=== PATIENT | male | born 1980 | race Native Hawaiian/Other Pacific Islander ===

== ENCOUNTER 2020-08-10 13:01 | Inpatient (IN) | payer OTHER ==
--- NOTE | 2020-08-10 13:45 | BHS.RME ---
2019 N Coronavirus Screen - COVID-19 Screening Questions Dx of COVID-19 or had a positive test in the last 4 weeks?: No Contact with known/suspected COVID patient in last 14 days?: No Any of these symptoms or contact with someone who has?: None Traveled domestically/internationally in the last 14 days?: No Screen score: 0 Screen result: Further Evaluation Substance Use & Tx History - Substance Use History Alcohol Substance amount: 2 pints vodka Frequency of use: Daily Substance route: Oral Date of Last Use: 08/10/20 (started age 17) Marijuana/Hashish Substance amount: 2 joints Frequency of use: Daily Substance route: Smoking Date of Last Use: 08/09/20 (started age 17) Cocaine- Powder Substance amount: 1snap Frequency of use: Once a month Substance route: Inhalation (ex: sniffing or snorting) Date of Last Use: 08/09/20 (started age 24) Nicotine Substance amount: 1/2 pack Frequency of use: Daily Substance route: Smoking Date of Last Use: 08/10/20 (started age 17) Physical/Psych/Mental Status - Behavior General Behavior: Increased activity (restlessness, agitation) Eye Contact: Normal - Cooperativeness Cooperativeness: Cooperative - Thinking Thought Processes: Tight, Logical, Goal Directed - Physical Health Problems Is patient presently having any pain?: No Does patient presently have any injuries (include location): No Does patient currently have a fever: No Is patient : No CIWA Nausea/Vomitin Muscle Tremors: 4-Moderate,w/Arms Extend Anxiety: 2 Agitation: 3 Paroxysmal Sweats: 1-Minimal Palms Moist Orientation: 0-Oriented Tacttile Disturbances: 1-Very Mild Itch/Numbness Auditory Disturbances: 0-None Visual Disturbances: 0-None Headache: 3-Moderate CIWA-Ar Total Score: 17
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
[2020-08-10] MEDS ORDERED: MAGNESIUM CITRATE 300 ML BOTTLE PO PRN (15:33)
[2020-08-10] MEDS ORDERED: IBUPROFEN 400 MG TABLET (FP) PO PRN (15:33)
[2020-08-10] MEDS ORDERED: ONDANSETRON *ODT* 4 MG TABLET SL PRN (15:33)
[2020-08-10] MEDS ORDERED: MAGNESIUM HYDROX 2400MG/30ML ORAL SUSPENSION 30 ML CUP PO PRN (15:33)
[2020-08-10] MEDS ORDERED: MENTHOL/PHENOL 1 EACH UD MM PRN (15:33)
[2020-08-10] MEDS ORDERED: NICOTINE POLACRILEX 2 MG GUM BUC PRN (15:33)
[2020-08-10] MEDS ORDERED: chlordiazePOXIDE HCL 25 MG CAPSULE PO PRN (15:33)
[2020-08-10] MEDS ORDERED: ACETAMINOPHEN 325 MG TABLET (FP) PO PRN ×2 (15:33)
[2020-08-10] MEDS ORDERED: BISMUTH SUBSALICYLATE 524 MG/30 ML UD PO PRN (15:33)
[2020-08-10 15:52] VITALS: BMI 25.0
[2020-08-10] MEDS: chlordiazePOXIDE HCL 25 MG CAPSULE PO SCH ×2 (18:35→23:12)
[2020-08-10] MEDS: NICOTINE 14 MG/24 HOURS TOPICAL PATCH TD SCH (18:36)
[2020-08-10] MEDS: hydrOXYzine PAMOATE 25 MG CAPSULE (FP) PO SCH ×2 (18:36→22:23)
[2020-08-10] MEDS: MELATONIN 5 MG TABLETS PO SCH (22:23)
[2020-08-10] MEDS: THIAMINE HCL 100 MG TABLET (FP) PO SCH (22:24)
[2020-08-11] MEDS: chlordiazePOXIDE HCL 25 MG CAPSULE PO SCH ×4 (06:41→22:34)
[2020-08-11] MEDS: hydrOXYzine PAMOATE 25 MG CAPSULE (FP) PO SCH (06:41)
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
[2020-08-11] MEDS ORDERED: chlordiazePOXIDE HCL 25 MG CAPSULE PO SCH (09:49)
[2020-08-11 10:03] LABS: ALBUMIN 3.2 g/dl (3.4-5.0); CALCIUM 9.1 mg/dL (8.5-10.1); POTASSIUM 4.3 mmol/L (3.5-5.1); TOT PROT 6.4 g/dl (6.4-8.2)
[2020-08-11 10:05] LABS: HEMATOCRIT 45.1 % (35.4-49); MCH 32.3 pg (25.7-33.7); MCHC 33.3 g/dl (32.0-35.9); MEAN CELL VOLUME 96.9 fl (80-96); MEAN PLT VOLUME 8.1 fl (7.5-11.1); PLATELET COUNT 293 K/MM3 (134-434); RBC 4.65 M/mm3 (4.00-5.60); RDW 13.5 % (11.9-15.9); WHITE BLOOD COUNT 4.9 K/mm3 (4.0-10.0)
[2020-08-11] MEDS: NICOTINE 14 MG/24 HOURS TOPICAL PATCH TD SCH (10:50)
[2020-08-11] MEDS: PRENATAL VITAMINS W/ FOLIC ACID TABLET (FP) PO SCH (10:50)
--- NOTE | 2020-08-11 12:41 | PN ---
S CIWA - CIWA Score Nausea/Vomitin-No Nausea/No Vomiting Muscle Tremors: 3 Anxiety: 2 Agitation: 2 Paroxysmal Sweats: 2 Orientation: 0-Oriented Tacttile Disturbances: 0-None Auditory Disturbances: 0-None Visual Disturbances: 0-None Headache: 0-None Present CIWA-Ar Total Score: 9 BHS Progress Note (SOAP) Subjective: sweats agitation body aches interrupted sleep I want a lesser librium because my withdrawals are not too bad. Objective: 08/11/20 12:40 Vital Signs Temperature 98.1 F 08/11/20 09:37 Pulse Rate 74 08/11/20 09:37 Respiratory Rate 18 08/11/20 09:37 Blood Pressure 115/69 08/11/20 09:37 O2 Sat by Pulse Oximetry (%) 96 08/11/20 05:34 Laboratory Tests 08/11/20 08/11/20 08/11/20 07:50 07:50 07:50 WBC 4.9 RBC 4.65 Hgb 15.0 Hct 45.1 MCV 96.9 H MCH 32.3 MCHC 33.3 RDW 13.5 Plt Count 293 MPV 8.1 Sodium 139 Potassium 4.3 Chloride 103 Carbon Dioxide 34 H Anion Gap 3 L BUN 15.0 Creatinine 1.0 Est GFR (CKD-EPI)AfAm 107.12 Est GFR (CKD-EPI)NonAf 92.42 Random Glucose 92 Calcium 9.1 Total Bilirubin 1.0 AST 18 ALT 24 Alkaline Phosphatase 60 Total Protein 6.4 Albumin 3.2 L Syphilis Serology Non-reactive labs noted aaox3 ambulating no acute distress Assessment: 08/11/20 12:41 withdrawals Plan: librium modified as pt request increase fluids
--- NOTE | 2020-08-11 13:43 | EKG ---
Test Reason : Blood Pressure : / mmHG Vent. Rate : 066 BPM Atrial Rate : 066 BPM P-R Int : 156 ms QRS Dur : 092 ms QT Int : 410 ms P-R-T Axes : 061 064 045 degrees QTc Int : 429 ms NORMAL SINUS RHYTHM EARLY REPOLARIZATION NO PREVIOUS ECGS AVAILABLE Confirmed by ALYSSA PARADA MD ([id number]) on 08/11/2020 1:42:41 PM Referred By: Confirmed By:ALYSSA PARADA MD
[2020-08-11] MEDS: THIAMINE HCL 100 MG TABLET (FP) PO SCH (22:34)
[2020-08-11] MEDS: MELATONIN 5 MG TABLETS PO SCH (22:34)
[2020-08-12] MEDS ORDERED: chlordiazePOXIDE HCL 25 MG CAPSULE PO SCH (05:00)
[2020-08-12] MEDS: chlordiazePOXIDE 5 MG CAPSULE PO SCH ×3 (06:01→17:52)
[2020-08-12] MEDS: NICOTINE 14 MG/24 HOURS TOPICAL PATCH TD SCH (11:04)
[2020-08-12] MEDS: PRENATAL VITAMINS W/ FOLIC ACID TABLET (FP) PO SCH (11:04)
[2020-08-12] MEDS: MAG HYDROX/AL HYDROX/SIMETH 30 ML UNIT-DOSE CUP PO PRN (14:49)
--- NOTE | 2020-08-12 18:48 | PN ---
S CIWA - CIWA Score Nausea/Vomitin-No Nausea/No Vomiting Muscle Tremors: None Anxiety: 4-Mod. Anxious/Guarded Agitation: 3 Paroxysmal Sweats: 2 Orientation: 0-Oriented Tacttile Disturbances: 0-None Auditory Disturbances: 0-None Visual Disturbances: 0-None Headache: 0-None Present CIWA-Ar Total Score: 9 BHS Progress Note (SOAP) Subjective: Sweating, Anxious, Interrupted Sleep. Objective: Patient A & O X 3, Observed Ambulating on Detox Unit Unassisted. In No Acute Distress. 08/12/20 18:48 Vital Signs Temperature 97.7 F 08/12/20 16:30 Pulse Rate 78 08/12/20 16:30 Respiratory Rate 18 08/12/20 16:30 Blood Pressure 126/77 08/12/20 16:30 O2 Sat by Pulse Oximetry (%) 99 08/12/20 16:30 Laboratory Tests 08/10/20 08/11/20 08/11/20 17:20 07:50 07:50 WBC 4.9 RBC 4.65 Hgb 15.0 Hct 45.1 MCV 96.9 H MCH 32.3 MCHC 33.3 RDW 13.5 Plt Count 293 MPV 8.1 Sodium Potassium Chloride Carbon Dioxide Anion Gap BUN Creatinine Est GFR (CKD-EPI)AfAm Est GFR (CKD-EPI)NonAf Random Glucose Calcium Total Bilirubin AST ALT Alkaline Phosphatase Total Protein Albumin Syphilis Serology Non-reactive COVID-19 (BARB) Not detected 08/11/20 07:50 WBC RBC Hgb Hct MCV MCH MCHC RDW Plt Count MPV Sodium 139 Potassium 4.3 Chloride 103 Carbon Dioxide 34 H Anion Gap 3 L BUN 15.0 Creatinine 1.0 Est GFR (CKD-EPI)AfAm 107.12 Est GFR (CKD-EPI)NonAf 92.42 Random Glucose 92 Calcium 9.1 Total Bilirubin 1.0 AST 18 ALT 24 Alkaline Phosphatase 60 Total Protein 6.4 Albumin 3.2 L Syphilis Serology COVID-19 (BARB) Lab Results noted. Assessment: 08/12/20 18:49 WITHDRAWAL SYMPTOMS. Plan: Continue Detox.
[2020-08-12] MEDS: THIAMINE HCL 100 MG TABLET (FP) PO SCH (21:50)
[2020-08-12] MEDS: METHOCARBAMOL 500 MG TABLET PO PRN (21:50)
[2020-08-12] MEDS: hydrOXYzine PAMOATE 25 MG CAPSULE (FP) PO PRN (21:50)
[2020-08-12] MEDS: MELATONIN 5 MG TABLETS PO SCH (23:04)
[2020-08-13] MEDS ORDERED: chlordiazePOXIDE HCL 10 MG CAPSULE PO PRN
[2020-08-13] MEDS: chlordiazePOXIDE HCL 10 MG CAPSULE PO SCH ×3 (06:18→17:32)
[2020-08-13] MEDS: PRENATAL VITAMINS W/ FOLIC ACID TABLET (FP) PO SCH (10:06)
[2020-08-13] MEDS: NICOTINE 14 MG/24 HOURS TOPICAL PATCH TD SCH (10:06)
--- NOTE | 2020-08-13 12:35 | PN ---
[facility] CIWA - CIWA Score Nausea/Vomitin-No Nausea/No Vomiting Muscle Tremors: None Anxiety: 1-Mildly Anxious Agitation: 0-Normal Activity Paroxysmal Sweats: 1-Minimal Palms Moist Orientation: 0-Oriented Tacttile Disturbances: 0-None Auditory Disturbances: 0-None Visual Disturbances: 0-None Headache: 0-None Present CIWA-Ar Total Score: 2 BHS Progress Note (SOAP) Subjective: Complaints of mild anxiety and sweats. Objective: 08/13/20 12:33 Alert and oriented x3, in no acute respiratory distress. Full ROM, ambulating in unit without any assistance. Skin warm to touch without lesions. Vital Signs 08/13/20 08/13/20 06:22 09:10 Temperature 97.1 F L 97.3 F L Pulse Rate 62 83 Respiratory 20 16 Rate Blood Pressure 112/63 124/77 O2 Sat by Pulse 98 98 Oximetry (%) Laboratory Last Values WBC 4.9 K/mm3 (4.0-10.0) 08/11/20 07:50 RBC 4.65 M/mm3 (4.00-5.60) 08/11/20 07:50 Hgb 15.0 GM/dL (11.7-16.9) 08/11/20 07:50 Hct 45.1 % (35.4-49) 08/11/20 07:50 MCV 96.9 fl (80-96) H 08/11/20 07:50 MCH 32.3 pg (25.7-33.7) 08/11/20 07:50 MCHC 33.3 g/dl (32.0-35.9) 08/11/20 07:50 RDW 13.5 % (11.9-15.9) 08/11/20 07:50 Plt Count 293 K/MM3 (134-434) 08/11/20 07:50 MPV 8.1 fl (7.5-11.1) 08/11/20 07:50 Sodium 139 mmol/L (136-145) 08/11/20 07:50 Potassium 4.3 mmol/L (3.5-5.1) 08/11/20 07:50 Chloride 103 mmol/L (98-107) 08/11/20 07:50 Carbon Dioxide 34 mmol/L (21-32) H 08/11/20 07:50 Anion Gap 3 MMOL/L (8-16) L 08/11/20 07:50 BUN 15.0 mg/dL (7-18) 08/11/20 07:50 Creatinine 1.0 mg/dL (0.55-1.3) 08/11/20 07:50 Est GFR (CKD-EPI)AfAm 107.12 08/11/20 07:50 Est GFR (CKD-EPI)NonAf 92.42 08/11/20 07:50 Random Glucose 92 mg/dL (74-106) 08/11/20 07:50 Calcium 9.1 mg/dL (8.5-10.1) 08/11/20 07:50 Total Bilirubin 1.0 mg/dL (0.2-1) 08/11/20 07:50 AST 18 U/L (15-37) 08/11/20 07:50 ALT 24 U/L (13-61) 08/11/20 07:50 Alkaline Phosphatase 60 U/L (45-117) 08/11/20 07:50 Total Protein 6.4 g/dl (6.4-8.2) 08/11/20 07:50 Albumin 3.2 g/dl (3.4-5.0) L 08/11/20 07:50 Syphilis Serology Non-reactive (NONREACTIVE) 08/11/20 07:50 COVID-19 (BARB) Not detected (Not Detected) 08/10/20 17:20 Labs noted. Assessment: 08/13/20 12:33 Minimal withdrawal symptoms. Plan: Continue detox protocol. D/C in AM.
[2020-08-13] MEDS: hydrOXYzine PAMOATE 25 MG CAPSULE (FP) PO PRN (22:07)
[2020-08-13] MEDS: THIAMINE HCL 100 MG TABLET (FP) PO SCH (22:07)
[2020-08-13] MEDS: METHOCARBAMOL 500 MG TABLET PO PRN (22:09)
[2020-08-13] MEDS: MAG HYDROX/AL HYDROX/SIMETH 30 ML UNIT-DOSE CUP PO PRN (22:09)
[2020-08-13] MEDS: MELATONIN 5 MG TABLETS PO SCH (23:09)
[2020-08-14] MEDS ORDERED: chlordiazePOXIDE HCL 10 MG CAPSULE PO SCH (05:00)
[2020-08-14] MEDS ORDERED: chlordiazePOXIDE HCL 10 MG CAPSULE PO ONE (05:00)
[2020-08-14 09:49] VITALS: BP 110/63; PULSE 88; TEMP 98.1
[2020-08-14] MEDS: NICOTINE 14 MG/24 HOURS TOPICAL PATCH TD SCH (11:05)
[2020-08-14] MEDS: PRENATAL VITAMINS W/ FOLIC ACID TABLET (FP) PO SCH (11:06)
--- NOTE | 2020-08-14 11:59 | DS ---
[facility] Detox Discharge Summary Admission Date: 08/10/20 Discharge Date: 08/14/20 - History Present History: Alcohol Dependence, Cannabis Dependence, Cocaine Dependence - Physical Exam Results Vital Signs: Vital Signs Temperature 98.1 F 08/14/20 08:20 Pulse Rate 88 08/14/20 08:20 Respiratory Rate 16 08/14/20 08:20 Blood Pressure 110/63 08/14/20 08:20 O2 Sat by Pulse Oximetry (%) 96 08/14/20 08:20 Pertinent Admission Physical Exam Findings: Vital Signs Temperature 98.1 F 08/14/20 08:20 Pulse Rate 88 08/14/20 08:20 Respiratory Rate 16 08/14/20 08:20 Blood Pressure 110/63 08/14/20 08:20 O2 Sat by Pulse Oximetry (%) 96 08/14/20 08:20 Laboratory Tests 08/10/20 08/11/20 08/11/20 17:20 07:50 07:50 WBC 4.9 RBC 4.65 Hgb 15.0 Hct 45.1 MCV 96.9 H MCH 32.3 MCHC 33.3 RDW 13.5 Plt Count 293 MPV 8.1 Sodium Potassium Chloride Carbon Dioxide Anion Gap BUN Creatinine Est GFR (CKD-EPI)AfAm Est GFR (CKD-EPI)NonAf Random Glucose Calcium Total Bilirubin AST ALT Alkaline Phosphatase Total Protein Albumin Syphilis Serology Non-reactive COVID-19 (BARB) Not detected 08/11/20 07:50 WBC RBC Hgb Hct MCV MCH MCHC RDW Plt Count MPV Sodium 139 Potassium 4.3 Chloride 103 Carbon Dioxide 34 H Anion Gap 3 L BUN 15.0 Creatinine 1.0 Est GFR (CKD-EPI)AfAm 107.12 Est GFR (CKD-EPI)NonAf 92.42 Random Glucose 92 Calcium 9.1 Total Bilirubin 1.0 AST 18 ALT 24 Alkaline Phosphatase 60 Total Protein 6.4 Albumin 3.2 L Syphilis Serology COVID-19 (BARB) aaox3 ambulating no acute distress lugs CTA - Treatment Hospital Course: Detox Protocol Followed, Detoxed Safely, Responded well, Discharged Condition Good, Rehab Referral Accepted - Medication Discharge Medications: Ambulatory Orders NK [No Known Home Medication] 08/10/20 - Diagnosis (1) Alcohol abuse with withdrawal, uncomplicated Current Visit: Yes Status: Chronic (2) Cannabis dependence Current Visit: Yes Status: Chronic (3) Cocaine dependence Current Visit: Yes Status: Chronic Qualifiers: Substance use status: uncomplicated Qualified Code(s): F14.20 - Cocaine dependence, uncomplicated (4) Nicotine dependence Current Visit: Yes Status: Chronic Qualifiers: Nicotine product type: cigarettes Substance use status: uncomplicated Qualified Code(s): F17.210 - Nicotine dependence, cigarettes, uncomplicated - AMA Did Patient Leave Against Medical Advice: No
--- NOTE | 2020-08-14 16:16 | EKG ---
Test Reason : Blood Pressure : / mmHG Vent. Rate : 060 BPM Atrial Rate : 060 BPM P-R Int : 146 ms QRS Dur : 092 ms QT Int : 410 ms P-R-T Axes : 044 064 044 degrees QTc Int : 410 ms NORMAL SINUS RHYTHM NORMAL ECG WHEN COMPARED WITH ECG OF 10-AUG-2020 16:28, NO SIGNIFICANT CHANGE WAS FOUND Confirmed by YEIMY DESAI MD ([id number]) on 08/14/2020 4:15:48 PM Referred By: Confirmed By:YEIMY DESAI MD
[2020-08-15] MEDS ORDERED: chlordiazePOXIDE HCL 10 MG CAPSULE PO ONE (05:00)
== END 2020-08-14 13:12 | disposition other institution (70) | DRG 774 ==
LOC: YASAS 13:01 → Y6N 17:23
PROVIDERS: ADMIT Allergy & Immunology; ATTEND Allergy & Immunology
PROC: HZ2ZZZZ Detoxification Services for Substance Abuse Treatment (ICD-10-PCS; principal; 2020-08-10)
DX: F10.230 Alcohol dependence with withdrawal, uncomplicated (principal); F14.20 Cocaine dependence, uncomplicated; F12.20 Cannabis dependence, uncomplicated; F17.210 Nicotine dependence, cigarettes, uncomplicated; H91.92 Unspecified hearing loss, left ear; M54.89 Other dorsalgia; Z62.810 Personal history of physical and sexual abuse in childhood; Z56.0 Unemployment, unspecified; Z98.890 Other specified postprocedural states; Z88.0 Allergy status to penicillin; Z91.018 Allergy to other foods
CPT/HCPCS: 36415; 80053; 85027; 86780; 93005; 93010; C9803; U0003

== ENCOUNTER 2020-08-14 12:49 | Inpatient (IN) | payer OTHER ==
[2020-08-14] MEDS ORDERED: ACETAMINOPHEN 325 MG TABLET (FP) PO PRN (15:18)
[2020-08-14] MEDS ORDERED: MAGNESIUM HYDROX 2400MG/30ML ORAL SUSPENSION 30 ML CUP PO PRN (15:18)
[2020-08-14] MEDS ORDERED: P-EPHED 60MG/TRIPROLIDI 2.5MG TABLET PO PRN (15:18)
[2020-08-14] MEDS ORDERED: hydrOXYzine PAMOATE 25 MG CAPSULE (FP) PO PRN (15:18)
[2020-08-14] MEDS ORDERED: NICOTINE POLACRILEX 2 MG GUM BUC PRN (15:18)
[2020-08-14] MEDS ORDERED: MENTHOL/PHENOL 1 EACH UD MM PRN (15:18)
[2020-08-14] MEDS ORDERED: guaiFENesin 200 MG/10 ML 10 ML UNIT-DOSE CUPS PO PRN (15:18)
[2020-08-14] MEDS ORDERED: LOPERAMIDE HCL 2 MG CAPSULE PO PRN (15:18)
[2020-08-14] MEDS ORDERED: MAGNESIUM CITRATE 300 ML BOTTLE PO PRN (15:18)
[2020-08-14] MEDS: THIAMINE HCL 100 MG TABLET (FP) PO SCH (21:25)
[2020-08-14] MEDS: MELATONIN 5 MG TABLETS PO SCH (21:25)
[2020-08-14] MEDS: MAG HYDROX/AL HYDROX/SIMETH 30 ML UNIT-DOSE CUP PO PRN (21:28)
[2020-08-15] MEDS: PRENATAL VITAMINS W/ FOLIC ACID TABLET (FP) PO SCH (10:31)
[2020-08-15] MEDS: NICOTINE 21 MG/24 HOURS TOPICAL PATCH TD SCH (10:31)
[2020-08-15 12:02] LABS: HIV INTERPRETATION NEGATIVE (NEGATIVE)
[2020-08-15] MEDS: MELATONIN 5 MG TABLETS PO SCH (21:29)
[2020-08-15] MEDS: IBUPROFEN 400 MG TABLET (FP) PO PRN (21:30)
[2020-08-15] MEDS: THIAMINE HCL 100 MG TABLET (FP) PO SCH (21:31)
[2020-08-16] MEDS: PRENATAL VITAMINS W/ FOLIC ACID TABLET (FP) PO SCH (10:01)
[2020-08-16] MEDS: NICOTINE 21 MG/24 HOURS TOPICAL PATCH TD SCH (10:01)
[2020-08-16] MEDS: MAG HYDROX/AL HYDROX/SIMETH 30 ML UNIT-DOSE CUP PO PRN (15:54)
[2020-08-16] MEDS: THIAMINE HCL 100 MG TABLET (FP) PO SCH (21:22)
[2020-08-16] MEDS: MELATONIN 5 MG TABLETS PO SCH (21:22)
[2020-08-17] MEDS: PRENATAL VITAMINS W/ FOLIC ACID TABLET (FP) PO SCH (10:03)
[2020-08-17] MEDS: NICOTINE 21 MG/24 HOURS TOPICAL PATCH TD SCH (10:03)
[2020-08-17] MEDS: MAG HYDROX/AL HYDROX/SIMETH 30 ML UNIT-DOSE CUP PO PRN (20:04)
[2020-08-17] MEDS: MELATONIN 5 MG TABLETS PO SCH (21:37)
[2020-08-17] MEDS: THIAMINE HCL 100 MG TABLET (FP) PO SCH (21:38)
[2020-08-17] MEDS: IBUPROFEN 400 MG TABLET (FP) PO PRN (21:38)
[2020-08-18] MEDS: NICOTINE 21 MG/24 HOURS TOPICAL PATCH TD SCH (10:21)
[2020-08-18] MEDS: PRENATAL VITAMINS W/ FOLIC ACID TABLET (FP) PO SCH (10:21)
[2020-08-18] MEDS: IBUPROFEN 400 MG TABLET (FP) PO PRN (21:17)
[2020-08-18] MEDS: MELATONIN 5 MG TABLETS PO SCH (21:17)
[2020-08-18] MEDS: THIAMINE HCL 100 MG TABLET (FP) PO SCH (21:18)
[2020-08-19] MEDS: NICOTINE 21 MG/24 HOURS TOPICAL PATCH TD SCH (09:44)
[2020-08-19] MEDS: PRENATAL VITAMINS W/ FOLIC ACID TABLET (FP) PO SCH (09:44)
[2020-08-19] MEDS: MELATONIN 5 MG TABLETS PO SCH (21:28)
[2020-08-19] MEDS: THIAMINE HCL 100 MG TABLET (FP) PO SCH (21:28)
[2020-08-19] MEDS: MAG HYDROX/AL HYDROX/SIMETH 30 ML UNIT-DOSE CUP PO PRN (21:29)
[2020-08-19] MEDS: IBUPROFEN 400 MG TABLET (FP) PO PRN (21:29)
[2020-08-20] MEDS: NICOTINE 21 MG/24 HOURS TOPICAL PATCH TD SCH (10:04)
[2020-08-20] MEDS: PRENATAL VITAMINS W/ FOLIC ACID TABLET (FP) PO SCH (10:04)
[2020-08-20] MEDS: MELATONIN 5 MG TABLETS PO SCH (21:23)
[2020-08-20] MEDS: THIAMINE HCL 100 MG TABLET (FP) PO SCH (21:23)
[2020-08-20] MEDS: MAG HYDROX/AL HYDROX/SIMETH 30 ML UNIT-DOSE CUP PO PRN (21:24)
[2020-08-20] MEDS: IBUPROFEN 400 MG TABLET (FP) PO PRN (21:24)
[2020-08-21] MEDS: NICOTINE 21 MG/24 HOURS TOPICAL PATCH TD SCH (10:32)
[2020-08-21] MEDS: PRENATAL VITAMINS W/ FOLIC ACID TABLET (FP) PO SCH (10:32)
[2020-08-21] MEDS: IBUPROFEN 400 MG TABLET (FP) PO PRN ×2 (10:32→21:31)
[2020-08-21] MEDS: MELATONIN 5 MG TABLETS PO SCH (21:31)
[2020-08-21] MEDS: THIAMINE HCL 100 MG TABLET (FP) PO SCH (21:31)
[2020-08-22] MEDS: PRENATAL VITAMINS W/ FOLIC ACID TABLET (FP) PO SCH (09:56)
[2020-08-22] MEDS: NICOTINE 21 MG/24 HOURS TOPICAL PATCH TD SCH (09:57)
[2020-08-22] MEDS: THIAMINE HCL 100 MG TABLET (FP) PO SCH (21:03)
[2020-08-22] MEDS: IBUPROFEN 400 MG TABLET (FP) PO PRN (21:03)
[2020-08-22] MEDS: MELATONIN 5 MG TABLETS PO SCH (21:03)
[2020-08-23] MEDS: PRENATAL VITAMINS W/ FOLIC ACID TABLET (FP) PO SCH (10:07)
[2020-08-23] MEDS: NICOTINE 21 MG/24 HOURS TOPICAL PATCH TD SCH (10:07)
[2020-08-23] MEDS: IBUPROFEN 400 MG TABLET (FP) PO PRN ×2 (10:08→21:33)
[2020-08-23] MEDS: LIDOCAINE 5% TOPICAL PATCH TP SCH (13:02)
[2020-08-23] MEDS: THIAMINE HCL 100 MG TABLET (FP) PO SCH (21:33)
[2020-08-23] MEDS: MELATONIN 5 MG TABLETS PO SCH (21:33)
[2020-08-23] MEDS: LIDOCAINE PATCH REMOVAL MC SCH (22:03)
[2020-08-24] MEDS: IBUPROFEN 400 MG TABLET (FP) PO PRN ×2 (09:49→21:05)
[2020-08-24] MEDS: PRENATAL VITAMINS W/ FOLIC ACID TABLET (FP) PO SCH (09:49)
[2020-08-24] MEDS: LIDOCAINE 5% TOPICAL PATCH TP SCH (09:50)
[2020-08-24] MEDS: NICOTINE 21 MG/24 HOURS TOPICAL PATCH TD SCH (09:50)
[2020-08-24] MEDS: THIAMINE HCL 100 MG TABLET (FP) PO SCH (21:03)
[2020-08-24] MEDS: MELATONIN 5 MG TABLETS PO SCH (21:03)
[2020-08-24] MEDS: LIDOCAINE PATCH REMOVAL MC SCH (21:04)
[2020-08-25] MEDS: LIDOCAINE 5% TOPICAL PATCH TP SCH (10:11)
[2020-08-25] MEDS: PRENATAL VITAMINS W/ FOLIC ACID TABLET (FP) PO SCH (10:11)
[2020-08-25] MEDS: IBUPROFEN 400 MG TABLET (FP) PO PRN (10:11)
[2020-08-25] MEDS: NICOTINE 21 MG/24 HOURS TOPICAL PATCH TD SCH (10:12)
[2020-08-25] MEDS: MELATONIN 5 MG TABLETS PO SCH (21:34)
[2020-08-25] MEDS: THIAMINE HCL 100 MG TABLET (FP) PO SCH (21:34)
[2020-08-25] MEDS: LIDOCAINE PATCH REMOVAL MC SCH (21:34)
[2020-08-26] MEDS: NICOTINE 21 MG/24 HOURS TOPICAL PATCH TD SCH (09:52)
[2020-08-26] MEDS: PRENATAL VITAMINS W/ FOLIC ACID TABLET (FP) PO SCH (09:52)
[2020-08-26] MEDS: LIDOCAINE 5% TOPICAL PATCH TP SCH (09:52)
[2020-08-26] MEDS: MAG HYDROX/AL HYDROX/SIMETH 30 ML UNIT-DOSE CUP PO PRN (14:43)
[2020-08-26] MEDS: LIDOCAINE PATCH REMOVAL MC SCH (21:03)
[2020-08-26] MEDS: THIAMINE HCL 100 MG TABLET (FP) PO SCH (21:03)
[2020-08-26] MEDS: MELATONIN 5 MG TABLETS PO SCH (21:03)
[2020-08-26] MEDS: IBUPROFEN 400 MG TABLET (FP) PO PRN (21:04)
[2020-08-27] MEDS: IBUPROFEN 400 MG TABLET (FP) PO PRN (09:22)
[2020-08-27] MEDS: LIDOCAINE 5% TOPICAL PATCH TP SCH (09:22)
[2020-08-27] MEDS: PRENATAL VITAMINS W/ FOLIC ACID TABLET (FP) PO SCH (09:22)
[2020-08-27] MEDS: NICOTINE 21 MG/24 HOURS TOPICAL PATCH TD SCH (09:23)
[2020-08-27] MEDS: THIAMINE HCL 100 MG TABLET (FP) PO SCH (21:28)
[2020-08-27] MEDS: MELATONIN 5 MG TABLETS PO SCH (21:28)
[2020-08-27] MEDS: LIDOCAINE PATCH REMOVAL MC SCH (21:28)
[2020-08-28] MEDS ORDERED: MASKS NR ONE (07:14)
[2020-08-28] MEDS: PRENATAL VITAMINS W/ FOLIC ACID TABLET (FP) PO SCH (10:02)
[2020-08-28] MEDS: NICOTINE 21 MG/24 HOURS TOPICAL PATCH TD SCH (10:03)
[2020-08-28] MEDS: LIDOCAINE 5% TOPICAL PATCH TP SCH (10:03)
[2020-08-28] MEDS: THIAMINE HCL 100 MG TABLET (FP) PO SCH (21:04)
[2020-08-28] MEDS: MELATONIN 5 MG TABLETS PO SCH (21:04)
[2020-08-28] MEDS: IBUPROFEN 400 MG TABLET (FP) PO PRN (21:05)
[2020-08-28] MEDS: LIDOCAINE PATCH REMOVAL MC SCH (22:10)
[2020-08-29] MEDS: LIDOCAINE 5% TOPICAL PATCH TP SCH (10:12)
[2020-08-29] MEDS: PRENATAL VITAMINS W/ FOLIC ACID TABLET (FP) PO SCH (10:12)
[2020-08-29] MEDS: IBUPROFEN 400 MG TABLET (FP) PO PRN ×2 (10:13→16:36)
[2020-08-29] MEDS: NICOTINE 21 MG/24 HOURS TOPICAL PATCH TD SCH (10:15)
[2020-08-29] MEDS: MELATONIN 5 MG TABLETS PO SCH (21:42)
[2020-08-29] MEDS: THIAMINE HCL 100 MG TABLET (FP) PO SCH (21:42)
[2020-08-29] MEDS: LIDOCAINE PATCH REMOVAL MC SCH (21:43)
[2020-08-30] MEDS: LIDOCAINE 5% TOPICAL PATCH TP SCH (10:04)
[2020-08-30] MEDS: PRENATAL VITAMINS W/ FOLIC ACID TABLET (FP) PO SCH (10:04)
[2020-08-30] MEDS: IBUPROFEN 400 MG TABLET (FP) PO PRN ×2 (10:05→21:10)
[2020-08-30] MEDS: NICOTINE 21 MG/24 HOURS TOPICAL PATCH TD SCH (10:06)
[2020-08-30] MEDS: MELATONIN 5 MG TABLETS PO SCH (21:10)
[2020-08-30] MEDS: THIAMINE HCL 100 MG TABLET (FP) PO SCH (21:10)
[2020-08-30] MEDS: LIDOCAINE PATCH REMOVAL MC SCH (21:11)
[2020-08-31] MEDS: LIDOCAINE 5% TOPICAL PATCH TP SCH (10:08)
[2020-08-31] MEDS: NICOTINE 21 MG/24 HOURS TOPICAL PATCH TD SCH (10:08)
[2020-08-31] MEDS: PRENATAL VITAMINS W/ FOLIC ACID TABLET (FP) PO SCH (10:08)
[2020-08-31] MEDS: THIAMINE HCL 100 MG TABLET (FP) PO SCH (21:31)
[2020-08-31] MEDS: MELATONIN 5 MG TABLETS PO SCH (21:31)
[2020-08-31] MEDS: LIDOCAINE PATCH REMOVAL MC SCH (21:31)
[2020-09-01] MEDS: PRENATAL VITAMINS W/ FOLIC ACID TABLET (FP) PO SCH (09:31)
[2020-09-01] MEDS: LIDOCAINE 5% TOPICAL PATCH TP SCH (09:31)
[2020-09-01] MEDS: IBUPROFEN 400 MG TABLET (FP) PO PRN ×2 (09:31→21:03)
[2020-09-01] MEDS: NICOTINE 21 MG/24 HOURS TOPICAL PATCH TD SCH (10:20)
[2020-09-01] MEDS: THIAMINE HCL 100 MG TABLET (FP) PO SCH (21:02)
[2020-09-01] MEDS: MELATONIN 5 MG TABLETS PO SCH (21:02)
[2020-09-01] MEDS: MAG HYDROX/AL HYDROX/SIMETH 30 ML UNIT-DOSE CUP PO PRN (21:03)
[2020-09-01] MEDS: LIDOCAINE PATCH REMOVAL MC SCH (21:04)
[2020-09-02] MEDS: NICOTINE 21 MG/24 HOURS TOPICAL PATCH TD SCH (09:38)
[2020-09-02] MEDS: PRENATAL VITAMINS W/ FOLIC ACID TABLET (FP) PO SCH (09:38)
[2020-09-02] MEDS: LIDOCAINE 5% TOPICAL PATCH TP SCH (09:38)
[2020-09-02] MEDS: MAG HYDROX/AL HYDROX/SIMETH 30 ML UNIT-DOSE CUP PO PRN (15:59)
[2020-09-02] MEDS: THIAMINE HCL 100 MG TABLET (FP) PO SCH (21:54)
[2020-09-02] MEDS: LIDOCAINE PATCH REMOVAL MC SCH (21:54)
[2020-09-02] MEDS: MELATONIN 5 MG TABLETS PO SCH (21:54)
[2020-09-03] MEDS: NICOTINE 21 MG/24 HOURS TOPICAL PATCH TD SCH (09:26)
[2020-09-03] MEDS: LIDOCAINE 5% TOPICAL PATCH TP SCH (09:26)
[2020-09-03] MEDS: PRENATAL VITAMINS W/ FOLIC ACID TABLET (FP) PO SCH (09:26)
[2020-09-03] MEDS: MELATONIN 5 MG TABLETS PO SCH (21:15)
[2020-09-03] MEDS: LIDOCAINE PATCH REMOVAL MC SCH (21:15)
[2020-09-03] MEDS: THIAMINE HCL 100 MG TABLET (FP) PO SCH (21:15)
[2020-09-04] MEDS: PRENATAL VITAMINS W/ FOLIC ACID TABLET (FP) PO SCH (09:36)
[2020-09-04] MEDS: LIDOCAINE 5% TOPICAL PATCH TP SCH (09:37)
[2020-09-04] MEDS: NICOTINE 21 MG/24 HOURS TOPICAL PATCH TD SCH (09:37)
[2020-09-04] MEDS: MELATONIN 5 MG TABLETS PO SCH (21:44)
[2020-09-04] MEDS: THIAMINE HCL 100 MG TABLET (FP) PO SCH (21:44)
[2020-09-04] MEDS: IBUPROFEN 400 MG TABLET (FP) PO PRN (21:44)
[2020-09-04] MEDS: LIDOCAINE PATCH REMOVAL MC SCH (21:45)
[2020-09-05] MEDS: PRENATAL VITAMINS W/ FOLIC ACID TABLET (FP) PO SCH (09:56)
[2020-09-05] MEDS: NICOTINE 21 MG/24 HOURS TOPICAL PATCH TD SCH (09:56)
[2020-09-05] MEDS: LIDOCAINE 5% TOPICAL PATCH TP SCH (09:56)
[2020-09-05] MEDS: THIAMINE HCL 100 MG TABLET (FP) PO SCH (21:01)
[2020-09-05] MEDS: LIDOCAINE PATCH REMOVAL MC SCH (21:02)
[2020-09-05] MEDS: MELATONIN 5 MG TABLETS PO SCH (21:02)
[2020-09-06] MEDS: PRENATAL VITAMINS W/ FOLIC ACID TABLET (FP) PO SCH (10:13)
[2020-09-06] MEDS: LIDOCAINE 5% TOPICAL PATCH TP SCH (10:14)
[2020-09-06] MEDS: NICOTINE 21 MG/24 HOURS TOPICAL PATCH TD SCH (10:14)
[2020-09-06] MEDS: MAG HYDROX/AL HYDROX/SIMETH 30 ML UNIT-DOSE CUP PO PRN (20:06)
[2020-09-06] MEDS: THIAMINE HCL 100 MG TABLET (FP) PO SCH (21:36)
[2020-09-06] MEDS: MELATONIN 5 MG TABLETS PO SCH (21:37)
[2020-09-06] MEDS: LIDOCAINE PATCH REMOVAL MC SCH (21:37)
[2020-09-07] MEDS: NICOTINE 21 MG/24 HOURS TOPICAL PATCH TD SCH (09:34)
[2020-09-07] MEDS: PRENATAL VITAMINS W/ FOLIC ACID TABLET (FP) PO SCH (09:34)
[2020-09-07] MEDS: LIDOCAINE 5% TOPICAL PATCH TP SCH (09:34)
[2020-09-07] MEDS: THIAMINE HCL 100 MG TABLET (FP) PO SCH (21:11)
[2020-09-07] MEDS: LIDOCAINE PATCH REMOVAL MC SCH (21:12)
[2020-09-07] MEDS: MELATONIN 5 MG TABLETS PO SCH (21:13)
[2020-09-08 06:44] VITALS: BP 141/67; PULSE 86; TEMP 97.9
[2020-09-08] MEDS: PRENATAL VITAMINS W/ FOLIC ACID TABLET (FP) PO SCH (09:37)
[2020-09-08] MEDS: NICOTINE 21 MG/24 HOURS TOPICAL PATCH TD SCH (09:38)
[2020-09-08] MEDS: LIDOCAINE 5% TOPICAL PATCH TP SCH (09:38)
[2020-09-08] MEDS ORDERED: MASKS NR ONE (09:40)
== END 2020-09-08 09:52 | disposition home or self-care (01) | DRG 772 ==
LOC: YASAS 12:49 → Y3W 12:51
PROVIDERS: ADMIT Allergy & Immunology; ATTEND Allergy & Immunology
PROC: HZ42ZZZ Group Counseling for Substance Abuse Treatment, Cognitive-Behavioral (ICD-10-PCS; principal; 2020-08-14)
DX: F10.20 Alcohol dependence, uncomplicated (principal); F14.20 Cocaine dependence, uncomplicated; F12.20 Cannabis dependence, uncomplicated; F17.210 Nicotine dependence, cigarettes, uncomplicated; Z62.810 Personal history of physical and sexual abuse in childhood; Z98.890 Other specified postprocedural states; Z56.0 Unemployment, unspecified; Z88.0 Allergy status to penicillin; Z91.018 Allergy to other foods
CPT/HCPCS: 36415; 87389